=== PATIENT | male | born 1965 | race Caucasian/White ===

== ENCOUNTER 2024-03-22 08:40 | Inpatient (IN) | payer BC, SELFPAY ==
[2024-03-18 09:11] VITALS: BMI 28.5
[2024-03-18 09:58] LABS: % Basophils 0.8 % (0-2); % Eosinophils 2.9 % (0-6); % Immature Granulocytes 0.3 % (0-0.5); % Lymphocytes 33.2 % (20.5-51.1); % Neutrophils 54.8 % (42.2-75.2); Absolute Basophils 0.1 10^3/uL (0-0.2); Absolute Eosinophils 0.3 10^3/uL (0-0.7); Absolute Lymphocytes 2.9 10^3/uL (1.2-3.4); Absolute Monocytes 0.7 10^3/uL (0.1-0.6); Absolute Neutrophils 4.8 10^3/uL (1.4-6.5); Hematocrit 39.4 % (39.0-52.0); Mean Corp Hgb Conc. 35.5 g/dL (33.0-37.0); Mean Corpuscular Hgb 33.2 pg (27.0-31.0); Mean Corpuscular Volume 93.4 fL (80.0-94.0); Mean Platelet Volume 8.8 fL (7.4-10.4); Nucleated Red Blood Cells % 0 % (-); Platelet Count 325 10^3/uL (130-400); Red Blood Cell Count 4.22 10^6/uL (4.70-6.10); Red Cell Dist. Width 11.3 % (11.5-14.5); White Blood Cell Count 8.8 10^3/uL (4.8-10.8)
[2024-03-18 10:01] LABS: Urine Albumin Negative (Neg - Trace); Urine Bilirubin Negative (Negative); Urine Character Clear (Clear); Urine Color Yellow; Urine Glucose Negative (Negative); Urine Ketone Negative (Negative); Urine Leukocyte Negative (Negative); Urine Nitrite Negative (Negative); Urine Occult Blood Negative (Negative); Urine Urobilinogen Negative (Neg - 1+)
[2024-03-18 10:05] LABS: INR 0.94; PT 12.3 Sec (11.4-14.6)
[2024-03-18 10:06] LABS: APTT 29.1 Sec (23.4-35.0)
[2024-03-18 10:58] LABS: ALT (SGPT) 20 U/L (0-50); AST (SGOT) 22 U/L (17-59); Albumin 4.6 g/dl (3.5-5.0); Alkaline Phosphatase 72 U/L (38-126); Blood Urea Nitrogen 21 mg/dl (9-20); Calcium 9.9 mg/dl (8.4-10.2); Carbon Dioxide 23 mmol/L (22-30); Chloride 101 mmol/L (98-107); Direct Bilirubin 0.3 mg/dl (0.0-0.4); Estimated Creatinine Clearance 99 ml/min; Glucose 133 mg/dl (70-99); Potassium 4.7 mmol/L (3.5-5.1); Sodium 133 mmol/L (135-145); Total Bilirubin 0.6 mg/dl (0.2-1.3); Total Protein 6.9 g/dl (6.3-8.2); eGFR > 60.00
--- NOTE | 2024-03-18 10:58 | CM ---
CM met w/ patient, spouse during PATs for planned CABG 03/22.
Patient resides in a 3 story home w/ spouse. There are 8-9 LORI.
Functionally, patient is indep. w/ ADLs, mobility without the use of any assisted device. Pt. has SPC and RW in the home but does not use (spouse's from knee surgery). 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
Pt. has Rx plan and uses [facility] [place] for [facility] needs.
Reviewed pre and post op routines.
Soap, shower instructions and Cardiac Surgery booklet provided.
Discussed post op restrictions to include lifting, driving, flying and sternal precautions.
Reviewed post op appointments, Cardiac Rehab and visit from CT Transitional Care RN. Pt. agreeable to CT RN visit.
Plan for CT Surgery 03/22.
Anticipated DC plan is for home w/ CT Transitonal Care RN.
CM to follow.
[2024-03-18 11:58] LABS: Glycohemoglobin (HgbA1c) 6.5 % (4.0-5.6)
[2024-03-22] VITALS (9 sets, daily range): BP systolic 108–160; BP diastolic 67–102; BMI 27.9
--- NOTE | 2024-03-22 09:01 | CM ---
Reviewed chart. Mr. Faith is in the operating room today. Prior to admission he resides with his spouse in a three story yanet with nine steps to enter. Prior to admission he was independent with ambulation and adls. There is a walker and single
point cane in the home that his spouse used when she has knee surgery. He has a prescription plan and uses [facility]. Medical work-up in progress. The discharge plan is to return home with his spouse and a home visit by the Cardiothoracic
Transitional Care Nurse when medically stable.
[2024-03-22] MEDS: BACTROBAN 2% OINTMENT 1 APPLIC NASAL ×2 (09:30→20:06)
[2024-03-22] MEDS: LOPRESSOR 25 MG PO (09:30)
[2024-03-22] MEDS: PROTONIX 40 MG PO (09:30)
[2024-03-22] MEDS: MAGNESIUM OXIDE 500 MG PO (09:31)
--- NOTE | 2024-03-22 09:49 | PTCARENOTE ---
Pt admitted to unit. Surgical Clip and prep preformed for CABG. Meds administered per order. BP obtained in bilateral arms and charted. Awaiting call for CVOR
--- NOTE | 2024-03-22 12:13 | W.CVOR.SURPR ---
CVOR Surgeon Immed Pre Op
-
I have examined this patient prior to performance of the scheduled procedure.
The patient's condition is unchanged from the time of the dictated/written History and
Physical and the patient is able to undergo the scheduled procedure.
CABG x 3 (multi arterial) +/- FLOR Clip
[2024-03-22 13:11] LABS: ACT+ - POC 96 Seconds (82-134)
[2024-03-22 13:12] LABS: Glucose - POC 119 mg/dl (65-99); HCO3 - POC 22 mmol/L (21-29); Hematocrit - POC 35 % PCV (42-52); Hemodilution- POC No; Hemoglobin Calculated - POC 11.9; Ionized Calcium - POC 1.18 mmol/L (1.12-1.27); O2 Saturation %Calculated-POC 98.8 5 (92-96); PCO2 - POC 45 mmHg (35-45); PO2 - POC 139 mmHg (80-100); Potassium - POC 3.9 mmol/L (3.6-5.0); Sodium - POC 142 mmol/L (135-145); pH - POC 7.29 (7.35-7.45)
[2024-03-22 13:41] LABS: Urine Bilirubin Negative (Negative); Urine Character Clear (Clear); Urine Color Yellow; Urine Glucose Negative (Negative); Urine Ketone Negative (Negative); Urine Leukocyte Negative (Negative); Urine Nitrite Negative (Negative); Urine Occult Blood Negative (Negative); Urine Urobilinogen Negative (Neg - 1+)
[2024-03-22 13:44] LABS: Urine Albumin Trace (Neg - Trace)
[2024-03-22 15:15] LABS: ACT+ - POC 573 Seconds (82-134)
[2024-03-22 15:55] LABS: B.E. - POC -3.3 mmol/L; Glucose - POC 198 mg/dl (65-99); HCO3 - POC 23 mmol/L (21-29); Hematocrit - POC 30 % PCV (42-52); Hemodilution- POC Yes; Hemoglobin Calculated - POC 10.3; Ionized Calcium - POC 0.93 mmol/L (1.12-1.27); O2 Saturation %Calculated-POC 99.9 5 (92-96); PCO2 - POC 45 mmHg (35-45); PO2 - POC 293 mmHg (80-100); Potassium - POC 6.7 mmol/L (3.6-5.0); Sodium - POC 133 mmol/L (135-145); pH - POC 7.32 (7.35-7.45)
[2024-03-22 16:01] LABS: ACT+ - POC 680 Seconds (82-134)
[2024-03-22 16:28] LABS: B.E. - POC -2.1 mmol/L; Glucose - POC 216 mg/dl (65-99); HCO3 - POC 24 mmol/L (21-29); Hematocrit - POC 35 % PCV (42-52); Hemodilution- POC Yes; Hemoglobin Calculated - POC 11.8; O2 Saturation %Calculated-POC 98.9 5 (92-96); PCO2 - POC 45 mmHg (35-45); PO2 - POC 135 mmHg (80-100); Potassium - POC 5.1 mmol/L (3.6-5.0); Sodium - POC 137 mmol/L (135-145); pH - POC 7.34 (7.35-7.45)
[2024-03-22 16:36] LABS: ACT+ - POC 751 Seconds (82-134)
[2024-03-22] MEDS: ANCEF 10 IV ×2 (16:51)
[2024-03-22 17:08] LABS: ACT+ - POC 96 Seconds (82-134)
[2024-03-22 17:12] LABS: B.E. - POC -2.6 mmol/L; Glucose - POC 156 mg/dl (65-99); HCO3 - POC 24 mmol/L (21-29); Hematocrit - POC 32 % PCV (42-52); Hemodilution- POC Yes; Ionized Calcium - POC 1.26 mmol/L (1.12-1.27); O2 Saturation %Calculated-POC 99.8 5 (92-96); PCO2 - POC 45 mmHg (35-45); PO2 - POC 236 mmHg (80-100); Potassium - POC 3.6 mmol/L (3.6-5.0); Sodium - POC 142 mmol/L (135-145); pH - POC 7.32 (7.35-7.45)
[2024-03-22] MEDS: NEURONTIN PO (17:27)
[2024-03-22] MEDS: NOVOLOG FLEXPEN SC (17:27)
[2024-03-22] MEDS: PACERONE PO (17:28)
[2024-03-22] MEDS: NSS 500 IV (17:28)
[2024-03-22] MEDS: TYLENOL PO ×2 (17:28→22:48)
--- NOTE | 2024-03-22 17:29 | CON.INTV ---
Consultation
Consultation Request
Date/Time Consultation Requested: 03/22/2024 - 1712
Date/Time Consultation Performed: 03/22/2024 - 1724
Requesting Provider: Wen ROWLEY
Performing Provider: Dr. Clement
Reason for Consultation: s/p CABG
Medical History
-
Chief Complaint: Elective CABG
History of Present Illness:
59-year-old male with a past medical history of CAD, hypertension, DM type II and hyperlipidemia presents for elective CABG. Patient known to cardiothoracic surgery here at with last office visit on 03/17/[address] Mitchell. Patient has
multivessel CAD and was recently admitted to [facility] due to chest discomfort on exertion. Left heart cath performed on 03/14/2024 showed multivessel CAD involving the proximal LAD. Patient is very active at baseline. Surgical
intervention for CABG was discussed and patient agreed to intervention. Today he underwent CABG x3 and was transferred to CVICU postoperatively. [employer] service is now consulted for additional management/recommendations.
When I saw the patient he was in bed, on ventilator via SIMV on settings 16/550/60%/5, breathing 16 breaths/min with PIP 23 cmH2O and VTe of 513mL. He was saturating 99%, heart rate 59, BP 140/65. He is currently on Cardizem drip at 5mg/hr and
Levophed at 8mcg/min. He has mediastinal chest tubes x 2 and a left/right pleural chest tube.
PMHx: DM type II, hyperlipidemia, hypertension, CAD
PSHx: Tonsillectomy, vasectomy
Past Medical History
Past Medical History: Other (above as per HPI)
Past Surgical History: Other (above as per HPI)
Social History
Tobacco: Former Smoker
Alcohol: Occasional
Drug: None
Family History
Family History: CAD (Mother), Diabetes (Mother) and Hypertension (Father)
Allergies / Home Medications
Allergies
Allergy/AdvReac Type Severity Reaction Status Date / Time
lanolin alcohols Allergy Intermediate Hives Verified 03/22/24 09:35
Home Medications
�Medication �Instructions �Recorded �Confirmed �Last Taken �Type
amlodipine 5 mg tablet 5 mg PO BID Blood Pressure 03/17/24 03/22/24 03/19/24 22:00 History
aspirin 81 mg tablet,delayed 81 mg PO DAILY Blood Clot 03/17/24 03/22/24 03/21/24 08:00 History
release Prevention/Tx
atorvastatin 40 mg tablet 40 mg PO DAILY High Cholesterol 03/17/24 03/22/24 03/21/24 20:00 History
enalapril maleate 5 mg tablet 15 mg PO BID Blood Pressure 03/17/24 03/22/24 03/19/24 22:00 History
ibuprofen 200 mg tablet 800 mg PO Q8H PRN pain 03/17/24 03/22/24 03/21/24 16:00 History
isosorbide mononitrate 30 mg 30 mg PO DAILY Blood Pressure 03/17/24 03/22/24 03/21/24 08:00 History
tablet,extended release 24 hr
metformin 500 mg tablet 500 mg PO BID Diabetes 03/17/24 03/22/24 03/21/24 20:00 History
metoprolol tartrate 25 mg tablet 25 mg PO DAILY Blood Pressure 03/17/24 03/22/24 03/21/24 08:00 History
multivitamin 1 tab PO DAILY Supplement 03/17/24 03/22/24 03/21/24 08:00 History
loratadine 10 mg tablet 10 mg PO DAILY Allergies 03/22/24 03/22/24 03/21/24 08:00 History
Review of Systems
-
Unable to Obtain full review of systems at this time due to: Patient Intubation
Vitals / Labs / Diagnostic Testing
Vital Signs
Temp Pulse Resp BP Pulse Ox
97.6 F 75 14 157/102 95
03/22/24 09:02 03/22/24 09:02 03/22/24 09:02 03/22/24 08:49 03/22/24 09:02
Microbiology
03/18/24 09:17 Nose MRSA Screen - Final
No Methicillin Resistant Staphylococcus aureus isolated.
Diagnostic Testing:
Physical Exam
-
HEENT: Normocephalic and Anicteric
Cardiovascular: S1/S2 and Peripheral Edema (negative)
Respiratory: Wheeze (n), Rales (n), Rhonchi (n), Non-Labored Respirations and Other (ETT in place; mechanical breath sounds heard bilaterally)
GI: Soft, Non Distended and Non Tender
Neurology: Tremors (n) and Other (Sedated)
Skin: Warm and Dry
General: Chills (Negative)
Assessment
-
Assessment: 59-year-old male with a past medical history of CAD, hypertension, DM type II and hyperlipidemia presents for elective CABG. Patient known to cardiothoracic surgery here at with last office visit on 03/17/[address] Mitchell. Patient
has multivessel CAD and was recently admitted to [facility] due to chest discomfort on exertion. Left heart cath performed on 03/14/2024 showed multivessel CAD involving the proximal LAD. Patient is very active at baseline. Surgical
intervention for CABG was discussed and patient agreed to intervention. Today he underwent CABG x3 with no immediate complications, and was transferred to CVICU postoperatively. [employer] service is now consulted for additional
management/recommendations.
Impression:
#Multivessel CAD involving proximal LAD s/p CABG x3 (POD#0)
#Former tobacco use disorder
#Anemia
#DM type II
Plan:
Ventilator settings reviewed
FiO2 will be weaned to maintain SpO2 >90-94%
Minute ventilation will be adjusted
Arterial blood gases will be monitored
Spontaneous breathing trial will be attempted with hopeful extubation after anesthesia/sedation wear off
Pulmonary artery catheter parameters will be followed
Pressors/antihypertensive/inotropes/diuretics will be provided as needed
Maintain MAP>65
Monitor chest tube output (mediastinal X2 and left & right pleural chest tubes)
Monitor hemoglobin
Monitor platelet count and coags
Transfuse blood product if needed
CT surgery managing chest tubes
Monitor blood sugar with goal BG 140-180mg/dL
Insulin drip per protocol
Replete electrolytes with K>4, Mg>2
Aspiration precautions
VAP prevention protocol
DVT prophylaxis
Early nutrition
Early mobilization
Critical care statement: A total of 42 minutes of critical care time was provided for this patient today. This includes management of ventilator, spontaneous breathing trial, arterial blood gases, pressors, of unstable vital signs, evaluation of the
patient at bedside, reviewing the patient's pertinent medical records including radiographs, microbiology, laboratory evaluations, and discussion with primary team and critical care nursing.
Data:
CXR 03-22-2024: Postoperative chest.
--- NOTE | 2024-03-22 17:48 | W.PN.CT.SURG ---
CT Surgery Operative Note
-
CARDIAC SURGERY OPERATIVE REPORT
Preoperative Diagnosis: Multivessel Coronary Artery Disease with proximal LAD disease and a chronically totally occluded RPDA
Postoperative Diagnosis: Same
Procedure(s) Performed:
1. Standard sternotomy with aortic and right atrial cannulation
2. Total arterial coronary artery bypass grafting x 3 (In situ MAYEN to LAD, DARCIE y'd off the MAYEN to OM 1, Ao to radial to RPDA)
3. Endoscopic left radial artery harvesting
4. Transesophageal echocardiography
5. Placement of temporary ventricular pacing wires
Date of Surgery: 03/22/2024
Comorbidities:
1. Multivessel coronary artery disease involving the proximal LAD
2. Diabetes on oral medications
3. Hyperlipidemia
4. Hypertension
Attending Surgeon: Benton Mitchell MD, MS
Assistants: Dylan Stacy PA-C (present and necessary to nurseryman assistant, endoscopic vein harvest, retraction, suction, exposure, suture management, and wound closure under my direction) & Helen Chauhan PA-C (endo radial harvesting under the direction
of Dylan Stacy PA-C)
Anesthesiology: Edmund Neil MD and Katie Borrego CRNA
Scrub and Circulating RNs: Sukhwinder Ball, RN, Nilda Callahan, MIRELLA
Plant Attendant: Tommy Lee CCP
Anesthesia: GETA
EBL: per perfusion records
Products: None
CPB Time: 80 minutes
Aortic Cross Clamp Time: 50 minutes
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 He
has significant family history for coronary artery disease. He is very active at baseline has ECOG score of 0. Due to his disease pattern and young age, he was offered multi arterial revascularization. He may class I indication for surgery. He
accepted those risk and so we proceeded.
Conduit(s) Quality:
MAYEN -excellent/skeletonized, good flow
DARCIE�excellent/large size vessel, skeletonized and taken as a free graft and y'd off of the MAYEN
Left radial artery-good/small area of superficial dissection however no impedance of flow
Target(s) Quality:
RPDA -good, small to medium size/excellent flow with test dose of antegrade approximately 50 cc a minute of flow at a pressure of 80 mmHg
OM 1-good/good visual flow in the OM territory with pinking up of the lateral wall upon release of the bulldog allowing flow to the DARCIE
LAD -excellent/good visual flow in the distal LAD and pinking up of the myocardium along the LAD territory
Findings: Left ventricular ejection fraction preoperatively was 65% without regional wall motion abnormalities. The MAYEN and DARCIE were harvested in a skeletonized fashion with the DARCIE taken as a free graft and y'd off of the midportion of the MAYEN.
Following bypass grafting, test dose cardioplegia was given down the radial artery using an 18-gauge Angiocath and confirmed patency and hemostasis. There is excellent visual flow in the LAD and lateral territories upon release of the bulldog clamp
sequentially. Following surgery his EF remained the same at 65% without any regional wall motion abnormalities. No products were given. No inotropic support was necessary. He did have intermittent right bundle branch block that resolved to a
regular sinus rhythm by the conclusion of the case.
Description of Procedure: The patient was taken to the operating room. Their identity and procedure to be performed were verified and they were positioned supine on the operating table. Induction via general anesthesia with endotracheal intubation
was performed and central venous access and arterial monitoring were inserted. A preoperative transesophageal echocardiogram was performed to assess cardiac function and valvular function. The patient was then prepped and draped from chin to feet in
a sterile fashion. A preoperative time-out was performed with all members of the team present. A midline chest incision was performed along with median sternotomy. Simultaneous endoscopic access of the left radial artery was obtained along with
administration of an initial 5,000 units of IV heparin. A RulTract sternal retractor was positioned to exposure the left internal mammary bed. The mammary was harvested and found to have good flow. A medium clip was applied to the distal end of the
mammary after dividing it. It was wrapped in a papaverine soaked RayTec and replaced back into the left hemithorax. The Rultract was then repositioned to expose the right hemithorax. There DARCIE is harvested in a skeletonized fashion. Was taken as
a free graft with 2 medium clips on each end. There is an excellent sized vessel. The RulTract was exchanged for a median sternal retractor. The innominate vein was isolated. Full heparinization was given (a total of 55,000 units). We created a
pericardial well. The aortic cannulation site was chosen where it was soft, pliable, and free of calcium. Cannulation was performed with an arterial cannula in the ascending aorta and a triple-stage venous cannula through the right atrial appendage.
The arterial cannula line had an appropriate bounce and correlating pressures with test dosing. Next, a root vent/antegrade cannula was inserted into the ascending aorta. The ACT was confirmed to be over 400 and retrograde autologous priming was
performed before commencing cardiopulmonary bypass. The pulmonary artery was away from the aorta to facilitate a clamp site. A DARCIE MAYEN Y graft construction was performed using 8-0 Prolene in end-to-side fashion at the midportion of the
MAYEN graft. There was excellent flow with test release of both the DARCIE and MAYEN independently. The aortic cross-clamp was placed after decreasing the flow on the bypass and mean arterial pressure. A total of 1.2L initial dose of antegrade
Del-Nido cardioplegia solution was given and planned for re-dosing every 75 minutes as necessary. There was rapid electro-mechanical arrest of the heart at 200 cc of cardioplegia. The left ventricle was observed for distention on echocardiogram and
manual palpation. Cold slush was placed into a sponge and topically on the RV while we systemically cooled to 34 degrees centigrade.
I positioned the heart to expose the distal right coronary at the posterior descending artery. A miccosukee blade was used to expose the coronary and perform the arteriotomy. Coronary Morales scissors were used to enlarge the incision. The left radial
artery was trimmed and beveled to an appropriate size. The distal anastomosis was performed using 7-0 prolene in an end-to-side fashion. Antegrade cardioplegia was administered into the graft. Appropriate hemostasis and flow were confirmed. The
graft was measured for length to the aorta and cut. A suitable site on the first obtuse marginal was chosen. We dissected and prepared the distal target in a similar fashion. An end-to-side anastomosis was created with a 7-0 prolene with the DARCIE
graft. A release of the bulldog demonstrated excellent flow in the territory and good hemostasis. A suitable target on the mid/distal left anterior descending was identified. We dissected and prepared the distal target in a similar fashion. The
distal end of the left internal mammary was prepped and beveled to size. We verified orientation and length of the FABBY and found brisk flow. An end-to-side anastomosis was created with a 7-0 prolene. We temporarily released the bulldog clamp on the
mammary to inspect flow. Perfusion to the LAD territory was visualized and hemostasis was confirmed. The bull clamp was replaced on the mammary. The heart was filled and the root was distended with antegrade cardioplegia to make final assessment of
graft length and orientation. We created 1 aortotomy using a #11 blade then a 4.0mm aortic punch. The proximal anastomoses were created in an end-to-side fashion using 7-0 prolene. At the the same time, we re-warmed to 36.5 degrees centigrade. The
bulldog clamp was removed from the mammary. Temporary bipolar ventricular pacing wires were placed on the base of the right ventricle. The patient was placed in a Trendelenburg position and flows on bypass were lowered. The aortic cross clamp was
removed and flows were slowly brought back up. All bypass grafts were inspected and were free from kinking or twisting. The distal and proximal anastomoses appeared hemostatic after placing a single 7 oh repair stitch in the proximal radial
anastomosis. Once transesophageal echocardiography appeared satisfactory for de-airing, the flows were temporarily lowered for root vent removal. After verifying acceptable parameters, we initiated weaning from cardiopulmonary bypass. Once we were
off cardiopulmonary bypass, the venous cannula was clamped and removed. A test dose of protamine was administered and the patient was monitored for any adverse reaction before resuming protamine. Once half of the protamine dose was delivered, pump
suckers were turned off and the systolic blood pressure was lowered for aortic decannulation. The aortic cannula was removed and pursestrings were tied down. All cannulation sites were oversewn with a 4-0 prolene. The mammary beds were inspected and
hemostasis was confirmed. Once the mediastinum was hemostatic, 19Fr Herbie drain was placed in the left and right pleural cavity and two 24Fr Herbie drains were placed within the pericardium. The sternum was approximated with 4 #7 single and 3 #8
double stainless steel wires. Fascia was approximated with #1 vicryl suture. The subcutaneous, dermis and epidermis were closed in layers in a running fashion. The skin wound was cleansed and dressed.
All instrument, sponge, and needle counts were confirmed to be correct x 2 at the end of the operation. The patient was transferred to the cardiac intensive care unit in critical but stable condition.
I, Dr. Benton Mitchell, was present, scrubbed for, and performed all critical elements of this procedure.
Benton Mitchell MD, MS
Cardiothoracic Surgeon
[facility]
This operative dictation was created using the Geotender dictation system. Please excuse any grammatical, typographical, or 'sound alike' errors
[2024-03-22 18:05] LABS: B.E. -1.5 mmol/L; HCO3 23.7 mmol/L (21-28); Ionized Calcium 1.19 mMOL/L (1.15-1.33); O2 Saturation % 99.3 % (94-98); PCO2 41 mmHg (35-48); PO2 177 mmHg (83-108); Potassium 3.5 mMOL/L (3.5-5.1); Sodium 138 mMOL/L (136-145); pH 7.37 (7.35-7.45)
[2024-03-22 18:06] LABS: Hematocrit 32.1 % (39.0-52.0); Hemoglobin 12.1 g/dL (13.0-18.0); Platelet Count 279 10^3/uL (130-400)
[2024-03-22 18:09] LABS: Glucose - Point of Care 134 mg/dl (70-99)
[2024-03-22 18:14] LABS: INR 1.32; PT 16.2 Sec (11.4-14.6)
--- NOTE | 2024-03-22 18:15 | PTCARENOTE ---
Pt out of CVOR to CVICU at 1750. Pt is intubated and sedated on Precedex gtt. Pt SR with HR 60. BP 114/65 MAP 82. CVP 9. Epicardial V wire in place. Intubated with #8 ET tube at 24cm on right lip. SIMV 40% FiO2, rate 16, TV 550, pressure support 5,
PEEP 5. Pulse oximetry 99%. CT x4 in place no sign of air leak or crepitus, drainage red in color. Hypoactive bowel sounds. Marino in place draining yellow urine. Midsternal incision well approximated, surgical adhesive intact. Left arm incision with
erik wrap in place. Chest tube site intact. Right IJ cordis in place with slick. CVP transduced through cordis line. Right radial Viri in place. Remains on Levo 2mcg/min, Cardizem 5 mg/hr, and Insulin. Post op EKG, x-ray, and labs collected.
[2024-03-22 18:16] LABS: Blood Urea Nitrogen 18 mg/dl (9-20); Estimated Creatinine Clearance 98 ml/min; Glucose 126 mg/dl (70-99); Magnesium 2.5 mg/dl (1.6-2.3)
--- NOTE | 2024-03-22 18:23 | W.PN.UPDATE ---
Update Note
Progress Note Update
59-year-old male electively admitted 03/22/2024 for CABG due to triple-vessel coronary artery disease
IV fluids: 3150
U.O.:� 800
UF:� 1500
Blood:� none
Wires:� bipolar V-wire
Inotropes:� none
Pressors:� levophed @ 10
Sedatives:� Precedex @ 0.5
�
NEURO: sedated on Precedex, pupils +2mm B/L
RESP: #8OT @24cm> 650/60%/14/5. Lungs clear B/L. 2 mediastinal (0cc on arrival) and R/L pleural (5cc on arrival) chest tubes to -20cm suction. Sanguineous drainage
CV: RRR +S1, S2, no S3, no�rub, no murmur. Dermabond to median sternotomy. RIJ w/slick intact
ABD: round, soft, no BS
EXT: no edema, +2/4 DP pulses B/L, no femoral bruit, right radial A-line intact, LUE SUMA wrap intact
: Mraino with clear yellow urine
�
A/P: POD #0 s/p CABG x 3 MAYEN-LAD, DARCIE-OM1 (y'd off the MAYEN), radial-RPDA
TRISTON: EF�65-70%, trace MR/TR
- wean and extubate
# CAD
-mukund require ASA/Plavix, statin, beta kandi
- Norvasc tonight when extubated, then can DC Diltiazem infusion
�
# acute surgical blood loss anemia-expected
- trend CBC
�
# T2DM (A1C 6.5)
- insulin infusion x 48h
- carb controlled diet
- resume Metformin 500mg BID once off insulin infusion
- resume ACEI as BP permits
�
[2024-03-22] MEDS: KCL 50 IV ×2 (18:29→19:48)
[2024-03-22] MEDS: DILAUDID 0.25 MG IV (19:03)
[2024-03-22 19:12] LABS: Glucose - Point of Care 115 mg/dl (70-99)
--- NOTE | 2024-03-22 20:00 | PTCARENOTE ---
Assumed care of pt from dayshift RN. Walking rounds completed. Pt intubated and sedated. Precedex infusing per protocol. Pt drowsy but following commands appropriately and PALENCIA. SR on monitor. HR 60s. Temporary epicardial v-wire intact and box turned
off. +rub. BP 90-100s/50-60. Levo infusing per protocol. CVP 8-14. Pt ETT #8, 24 cm @ right lip. See worklist for full vent settings. POX 100%. Lung sounds diminished anteriorly. Mediastinal CTx2 to -20 suction, no air-leak/tidaling/crepitus noted
at this time. Left/Right pleural CT to -20 suction, no airleak/tidaling/crepitus noted at this time. Abdomen soft/nontender. Temp sensing Marino catheter CDI and draining clear/yellow urine. Hypoactive BS. Sternal incision approximated w/ surgical
adhesive. Left radial graft site wrapped in SUMA and CDI. Cardizem, infusing as ordered. Right IJ cordis w/ SLIC CDI. Right radial a-line CDI. All lines leveled, zeroed, and flushed. Glycemic protocol followed. See worklist for full nursing
assessment, VS, and interventions.
[2024-03-22] MEDS: SENOKOT-S PO (20:06)
--- NOTE | 2024-03-22 20:10 | PTCARENOTE ---
Pt placed to CPAP by RT. Pt tolerating at. VSS. POX 100%.
[2024-03-22 20:44] LABS: Glucose - Point of Care 92 mg/dl (70-99)
[2024-03-22 20:56] LABS: B.E. -3.9 mmol/L; HCO3 21.6 mmol/L (21-28); O2 Saturation % 98.7 % (94-98); PCO2 40 mmHg (35-48); PO2 127 mmHg (83-108); pH 7.34 (7.35-7.45)
[2024-03-22 21:10] LABS: Glucose - Point of Care 105 mg/dl (70-99)
[2024-03-22] MEDS: OFIRMEV 100 IV (21:24)
--- NOTE | 2024-03-22 21:30 | PTCARENOTE ---
ABG drawn and sent. CTPA put in order to extubate. Pt extubated by RT @2111 to 6 L NC. POX 100%. Pt AAOx3, VSS.
[2024-03-22 22:40] LABS: Hematocrit 34.7 % (39.0-52.0); Platelet Count 308 10^3/uL (130-400)
[2024-03-22] MEDS: NEURONTIN 100 MG PO (22:47)
[2024-03-22] MEDS: PACERONE 200 MG PO (22:47)
[2024-03-22] MEDS: NORVASC 5 MG PO (22:47)
[2024-03-22] MEDS: LOW STRENGTH ASPIRIN 81 MG PO (22:47)
[2024-03-22] MEDS: ALBUMIN 5% 250 IV (22:49)
--- NOTE | 2024-03-22 22:55 | PTCARENOTE ---
Per CTPA - give pt Norvasc PO then stop Cardizem infusion.
[2024-03-22 23:00] LABS: Glucose - Point of Care 169 mg/dl (70-99)
[2024-03-23] VITALS (28 sets, daily range): BP systolic 115–156; BP diastolic 71–95; PULSE 78; O2SAT 98; BMI 28.2
[2024-03-23] MEDS: ANCEF 5 IV ×3 (00:06→16:02)
[2024-03-23] MEDS: ROXICODONE 5 MG PO ×2 (00:06→20:27)
[2024-03-23] MEDS: ALBUMIN 5% 250 IV (00:19)
[2024-03-23] MEDS: DILAUDID 0.5 MG IV ×2 (00:31→04:51)
--- NOTE | 2024-03-23 00:52 | PTCARENOTE ---
Pt reassessed. SR on monitor. HR 70s. BP stable. Levo titrated off per protocol. 4 L NC. POX 100%. CT assessment unchanged from previous. All surgical sites stable. Glycemic protocol followed. All lines zeroed, leveled and flushed. Pt c/o pain - see
MAR. 250 albumin x2 per CTPA. Call gardiner within reach.
[2024-03-23 01:20] LABS: Glucose - Point of Care 139 mg/dl (70-99)
[2024-03-23] MEDS: FLEXERIL 5 MG PO ×2 (02:38→13:48)
[2024-03-23 03:17] LABS: Glucose - Point of Care 123 mg/dl (70-99)
[2024-03-23 03:24] LABS: Hematocrit 30.5 % (39.0-52.0); Hemoglobin 11.5 g/dL (13.0-18.0); Mean Corp Hgb Conc. 37.7 g/dL (33.0-37.0); Mean Corpuscular Hgb 33.8 pg (27.0-31.0); Mean Corpuscular Volume 89.7 fL (80.0-94.0); Mean Platelet Volume 8.5 fL (7.4-10.4); Platelet Count 245 10^3/uL (130-400); Red Cell Dist. Width 11.7 % (11.5-14.5); White Blood Cell Count 12.3 10^3/uL (4.8-10.8)
--- NOTE | 2024-03-23 03:48 | PTCARENOTE ---
Addendum entered by Chrissy Wu RN 03/23/24 03:52:
Labs drawn and sent. EKG obtained.
Original Note:
Previous assessment unchanged. Pt SR on monitor. HR 70s. BP stable. CVP 6-10. 4 L NC. POX 98-100%. CT assessment unchanged. All surgical sites stable. Marino catheter CDI. Glycemic protocol followed. All lines leveled, zeroed, and flushed. Pt c/o
pain - see MAR. Call gardiner within reach.
[2024-03-23 03:51] LABS: Blood Urea Nitrogen 19 mg/dl (9-20); Calcium 9.1 mg/dl (8.4-10.2); Carbon Dioxide 22 mmol/L (22-30); Chloride 106 mmol/L (98-107); Estimated Creatinine Clearance 110 ml/min; Glucose 116 mg/dl (70-99); Magnesium 2.1 mg/dl (1.6-2.3); Potassium 4.5 mmol/L (3.5-5.1); Sodium 138 mmol/L (135-145); eGFR > 60.00
[2024-03-23 04:56] LABS: Glucose - Point of Care 120 mg/dl (70-99)
--- NOTE | 2024-03-23 06:13 | W.PN.CT ---
Today's Communication / Plan
-
POD #1
- hemodynamically stable. levo off
- tele phase
- diltiazem off s/p norvasc given postop
- UOP 960/1060 in 12/24hrs
- CT med 60/65 in 12/24 hrs, pleural 120/135 in 12/24hrs
- 4LNC, wean as tolerates
- encourage IS/chest PT
- PT/OT, OOB
- dispo planning
Assessment / Plan
-
s/p coronary artery bypass grafting x 3 (In situ MAYEN to LAD, DARCIE y'd off the MAYEN to OM 1, Ao to radial to RPDA) on 03/22/[address] Mitchell - POD #1
-CAD now s/p cabg 03/22/24
-HTN
-HLD
-NIDDM
-psh s/p tonsillectomy
Discussed patient care with: Care Team
Subjective
Procedure
s/p coronary artery bypass grafting x 3 (In situ MAYEN to LAD, DARCIE y'd off the MAYEN to OM 1, Ao to radial to RPDA) on 03/22/[address] Mitchell
-
Date of Service: March 23, 2024
Objective Data
-
Lab Results
03/23/24 03:16
03/23/24 03:16
PT 16.2 Sec (11.4-14.6) H 03/22/24 17:58
INR 1.32 03/22/24 17:58
APTT 26.0 Sec (23.4-35.0) 03/22/24 17:58
Vital Signs
Vital Signs
Temp Pulse Resp BP Pulse Ox
100 F 76 19 136/77 98
03/23/24 04:00 03/23/24 04:15 03/23/24 04:15 03/23/24 04:00 03/23/24 04:15
CT Intake/Output/Weight
03/22/24 03/22/24 03/23/24
06:59 18:59 06:59
Intake Total 62.1 / 892.0 829.9 / 892.0
Output Total 120 / 1090 970 / 1090
Balance -57.9 / -198.0 -140.1 / -198.0
SaO2: 98
Physical Exam
-
General: Awake, Oriented and AOx3
Cardiovascular: Regular rate & rhythm
Respiratory: Clear and Equal
Sternum: Stable
Incision: Clean, Dry and Intact
Extremities: Edema +1
Data Reviewed
-
Lab Results: Results Reviewed
Medications: Active Meds Reviewed
Chest X-Ray: Image Reviewed
Vital Signs / Labs
-
Vital Signs and Labs:
Temp Pulse Resp BP Pulse Ox
99.9 F 83 24 132/84 99
03/23/24 05:00 03/23/24 05:15 03/23/24 05:15 03/23/24 05:00 03/23/24 05:15
03/23/24 03:16
03/23/24 03:16
03/21/24 03/22/24 03/22/24
08:18 13:09 15:05
WBC
RBC
Hgb
Hct
MCH
MCHC
PT
pH
pO2
ABG O2 Sat (Measured)
POC ABG O2 Sat (Calc) 98.8 H
Glucose
Magnesium
POC pH 7.29 L
POC pO2 139 H
POC Glucose 119 H
POC Sodium
POC Potassium
POC Ionized Calcium
POC ACT+ 573 H
POC Hematocrit 35 L
Crossmatch IS Only See Detail
03/22/24 03/22/24 03/22/24
15:45 15:50 16:18
WBC
RBC
Hgb
Hct
MCH
MCHC
PT
pH
pO2
ABG O2 Sat (Measured)
POC ABG O2 Sat (Calc) 99.9 H
Glucose
Magnesium
POC pH 7.32 L
POC pO2 293 H
POC Glucose 198 H
POC Sodium 133 L
POC Potassium 6.7 H*
POC Ionized Calcium 0.93 L
POC ACT+ 680 H 751 H
POC Hematocrit 30 L
Crossmatch IS Only
03/22/24 03/22/24 03/22/24
16:23 17:07 17:58
WBC
RBC
Hgb 12.1 L
Hct 32.1 L
MCH
MCHC
PT 16.2 H
pH
pO2 177 H
ABG O2 Sat (Measured) 99.3 H
POC ABG O2 Sat (Calc) 98.9 H 99.8 H
Glucose 126 H
Magnesium 2.5 H
POC pH 7.34 L 7.32 L
POC pO2 135 H 236 H
POC Glucose 216 H 156 H 134 H
POC Sodium
POC Potassium 5.1 H
POC Ionized Calcium 1.00 L
POC ACT+
POC Hematocrit 35 L 32 L
Crossmatch IS Only
03/22/24 03/22/24 03/22/24
19:10 20:52 21:09
WBC
RBC
Hgb
Hct
MCH
MCHC
PT
pH 7.34 L
pO2 127 H
ABG O2 Sat (Measured) 98.7 H
POC ABG O2 Sat (Calc)
Glucose
Magnesium
POC pH
POC pO2
POC Glucose 115 H 105 H
POC Sodium
POC Potassium
POC Ionized Calcium
POC ACT+
POC Hematocrit
Crossmatch IS Only
03/22/24 03/22/24 03/23/24
22:36 22:59 01:18
WBC
RBC
Hgb
Hct 34.7 L
MCH
MCHC
PT
pH
pO2
ABG O2 Sat (Measured)
POC ABG O2 Sat (Calc)
Glucose
Magnesium
POC pH
POC pO2
POC Glucose 169 H 139 H
POC Sodium
POC Potassium
POC Ionized Calcium
POC ACT+
POC Hematocrit
Crossmatch IS Only
03/23/24 03/23/24 03/23/24
03:15 03:16 04:54
WBC 12.3 H
RBC 3.40 L
Hgb 11.5 L
Hct 30.5 L
MCH 33.8 H
MCHC 37.7 H
PT
pH
pO2
ABG O2 Sat (Measured)
POC ABG O2 Sat (Calc)
Glucose 116 H
Magnesium
POC pH
POC pO2
POC Glucose 123 H 120 H
POC Sodium
POC Potassium
POC Ionized Calcium
POC ACT+
POC Hematocrit
Crossmatch IS Only
[2024-03-23] MEDS: TYLENOL 1000 MG PO ×3 (06:47→20:26)
[2024-03-23 07:00] LABS: Glucose - Point of Care 153 mg/dl (70-99)
--- NOTE | 2024-03-23 07:30 | W.PN.ANS.POP ---
Anesthesia Post Operative
- Anesthesia Post Op Note
Vital Signs Stable-See Nursing Note: Yes
Airway Patent: Yes
Adequate Pain Control: Yes
Change in Mental Status: No
Current Postoperative Nausea & Vomiting: No
Anesthesia Complications: No
General Anesthetic Recall: No
Unplanned Admission: No
Post Op Hydration Adequate: Yes
--- NOTE | 2024-03-23 07:55 | PTCARENOTE ---
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 RIJ Cordis w/kvo infusing. Insulin infusing per glycemic protocol. Epicardial V-wire to pulse generator, off. Chest tubes x 4 (Med x 2/L and R
pleural) to two pleurevacs, to -20cm suction w/no air leaks noted. All procedural sites stable. Patient updated to plan of care for the day, in agreement. See work list for full assessment and interventions performed.
[2024-03-23 08:27] LABS: Glucose - Point of Care 103 mg/dl (70-99)
[2024-03-23] MEDS: LASIX 40 MG IV (08:27)
[2024-03-23] MEDS: BACTROBAN 2% OINTMENT 1 APPLIC NASAL ×2 (08:27→20:37)
[2024-03-23] MEDS: LIDOCAINE 4% PATCH 1 PATCH TOPICAL (08:27)
[2024-03-23] MEDS: LOW STRENGTH ASPIRIN 81 MG PO (08:28)
[2024-03-23] MEDS: LOPRESSOR 12.5 MG PO (08:28)
[2024-03-23] MEDS: PROTONIX 40 MG PO (08:28)
[2024-03-23] MEDS: NEURONTIN 100 MG PO ×3 (08:28→20:26)
[2024-03-23] MEDS: PACERONE 200 MG PO ×3 (08:28→20:26)
[2024-03-23] MEDS: MAGNESIUM OXIDE 500 MG PO ×2 (08:28→20:26)
[2024-03-23] MEDS: PLAVIX 75 MG PO (08:29)
[2024-03-23] MEDS: LIPITOR 40 MG PO (08:29)
[2024-03-23] MEDS: SENOKOT-S 1 TABLET PO ×2 (08:29→20:27)
--- NOTE | 2024-03-23 08:35 | W.PN.CD ---
Today's Communication / Plan
-
cont ASA, plavix
trend tele
EKG in AM
Impression / Plan
-
59 yo male with CAD, HTN, hyperlipidemia, DM admitted following elective CABG.
# CAD s/p coronary artery bypass grafting x 3 (In situ MAYEN to LAD, DARCIE y'd off the MAYEN to OM 1, Ao to radial to RPDA) on 03/22/[address] Mitchell
-post op TRISTON: EF 65-70%
-cont ASA, Plavix, metoprolol, statin
# Abnormal EKG
-new LBBB pots op
-also diffuse ST elevation c/w pericarditis
-if sxs persist after chest tube removal, can add colchicine
-EKG in AM
# HTN
-trend BP as recovers from OR
-cont metoprolol, amlodipine
-add back home enalapril as BP allows
Physical Exam
Vital Signs/Labs
Vital Signs
Temp Pulse Resp BP Pulse Ox
99.9 F 90 20 137/78 97
03/23/24 05:00 03/23/24 08:28 03/23/24 07:00 03/23/24 08:28 03/23/24 08:15
03/22/24 03/23/24 03/24/24
06:59 06:59 06:59
Actual Weight 94.2 kg
03/23/24 03:16
03/23/24 03:16
PT 16.2 Sec (11.4-14.6) H 03/22/24 17:58
INR 1.32 03/22/24 17:58
APTT 26.0 Sec (23.4-35.0) 03/22/24 17:58
Magnesium 2.1 mg/dl (1.6-2.3) 03/23/24 03:16
Physical Exam
Constitutional: No acute distress
EENT: Moist mucous membranes
Cardiovascular: Rhythm & rate is regular, Pedal edema is absent, JVD pressure is normal, Systolic murmur absent and Rub present
Respiratory: Respiratory effort normal and Lungs clear to auscul.
GI: Soft, Distention absent and Flat
Neuro/Psych: AO x 3
Data Reviewed
-
Date of Service: March 23, 2024
EKG: Tracing Personally Visualized and interpreted (Tele: SR 70s)
Labs: Labs Reviewed by me
[2024-03-23] MEDS: NOVOLOG FLEXPEN SC (08:43)
[2024-03-23] MEDS: NORVASC 5 MG PO (09:17)
[2024-03-23] MEDS: NOVOLIN R INSULIN INFUSION 100 IV (09:18)
[2024-03-23] MEDS: TORADOL 15 MG IV ×3 (09:18→20:27)
--- NOTE | 2024-03-23 09:50 | W.PN.INTV ---
Today's Communication / Plan
Recommendations
Up OOB as tolerated
Maintain SpO2 >90-94%
Management of remaining mediastinal chest tubes as per CT surgery
Wean off of insulin drip as tolerated and maintain goal BG 140�180
Patient remains CVICU status as patient remains on insulin infusion. Appraisal Coordinator/Pulmonary service will continue to follow along while patient remains on insulin drip.
Assessment
-
Assessment: 59-year-old male with a past medical history of CAD, hypertension, DM type II and hyperlipidemia presents for elective CABG. Patient known to cardiothoracic surgery here at with last office visit on 03/17/[address] Mitchell. Patient
has multivessel CAD and was recently admitted to [facility] due to chest discomfort on exertion. Left heart cath performed on 03/14/2024 showed multivessel CAD involving the proximal LAD. Patient is very active at baseline. Surgical
intervention for CABG was discussed and patient agreed to intervention. Today he underwent CABG x3 with no immediate complications, and was transferred to CVICU postoperatively. Appraisal Coordinator service is now consulted for additional
management/recommendations.
Impression:
#Multivessel CAD involving proximal LAD s/p CABG x3 (POD#1)
#Former tobacco use disorder
#Anemia
#DM type II
Plan:
Tolerated extubation
Maintain SpO2 >90-94%
Encourage incentive spirometry
Increase activity
Aspiration precautions
Pulmonary artery catheter and arterial line removed
Removal of right IJ cordis as per CT surgery
Pressors have been weaned
Continue to monitor chest tube output (mediastinal chest tubes x2)
Follow hemoglobin
Continue to follow platelet count and coags
Transfuse blood product as needed to keep Hb>8 g/dL
CT surgery managing chest tubes as well
Follow blood sugar while on insulin gtt
q1hr POCT glucose
Goal BG 140-180mg/dL
Early nutrition
Early mobilization
DVT prophylaxis
Patient remains CVICU status as patient remains on insulin infusion. Appraisal Coordinator service will continue to follow along while patient remains on insulin drip. Continue q1hr POCT glucose checks and avoid hypoglycemia.
I personally reviewed the patient's pertinent medical records including radiographs, microbiology, laboratory evaluations, and discussion with primary team, and critical care nursing.
Critical care statement: A total of 37 minutes of critical care time was provided for this patient today. This includes management of ventilator, spontaneous breathing trial, arterial blood gases, pressors, of unstable vital signs, evaluation of the
patient at bedside, reviewing the patient's pertinent medical records including radiographs, microbiology, laboratory evaluations, and discussion with primary team and critical care nursing.
Data:
CXR 03-23-2024: Stable postoperative changes with interval removal of endotracheal tube
CXR 03-22-2024: Postoperative chest.
Subjective Dataa
Subjective Data
Date of Service:
Date of Service: March 23, 2024
Chief Complaint: Appraisal Coordinator Follow Up
Subjective:
Patient seen this morning. Doing well on room air, breathing comfortably. Mediastinal chest tubes x2 in place. BP 131/71, heart rate 80. He remains on insulin drip at 7 units/hr. he is sitting in chair with spouse at bedside. Using incentive
spirometer but barely able to pull 250 mL. He denies chest pain, headache, shortness of breath, fevers or chills.
Review of Systems
General: Other (Negative unless mentioned above)
Objective Data
Data Reviewed
Vital Signs / I&O / Oxygen:
Vital Signs
Temp Pulse Resp BP Pulse Ox
98.2 F 72 16 131/78 97
03/23/24 16:00 03/23/24 17:00 03/23/24 16:00 03/23/24 17:00 03/23/24 16:00
Intake and Output
03/22/24 03/23/24 03/24/24
06:59 06:59 06:59
Intake Total 949.5 / 961.8 763.1 / 763.1
Output Total 1365 / 1395 915 / 915
Balance -415.5 / -433.2 -151.9 / -151.9
SaO2 [CPAP/PSV] 100
SaO2 [SIMV] 100
SaO2 97
Nasal Cannula flow liters per 2
minute
Physical Exam
General: Respiratory Distress (negative) and Comfortable
HEENT: Normocephalic and Anicteric
Cardiovascular: S1-S2, Rub and Peripheral Edema (negative)
Respiratory: Clear, Wheeze (negative), Crackles (negative), Rhonchi (negative) and Non-Labored Respirations
GI: Soft, Non Distended and Non Tender
Neurology: Awake, Alert and Tremors (negative)
Skin: Warm and Dry
Labs/Micro/Reports
Lab Data
03/23/24 03:16
03/23/24 03:16
Laboratory Results
03/22/24 03/22/24
17:58 20:52
PT 16.2 H
INR 1.32
APTT 26.0
pH 7.37 7.34 L
pCO2 41 40
pO2 177 H 127 H
HCO3 23.7 21.6
O2 Delivery Level
[2024-03-23 10:02] LABS: Glucose - Point of Care 169 mg/dl (70-99)
[2024-03-23 11:32] LABS: Glucose - Point of Care 128 mg/dl (70-99)
[2024-03-23] MEDS: NSS IV (12:07)
--- NOTE | 2024-03-23 12:10 | PTCARENOTE ---
VS obtained, assessment stable. Patient states pain controlled at this time. Lunch ordered.
[2024-03-23] MEDS: MUCINEX 600 MG PO ×2 (12:32→20:26)
[2024-03-23] MEDS: NOVOLOG FLEXPEN 4 UNITS SC ×2 (12:34→17:59)
[2024-03-23 13:59] LABS: Glucose - Point of Care 165 mg/dl (70-99)
[2024-03-23 16:01] LABS: Glucose - Point of Care 125 mg/dl (70-99)
--- NOTE | 2024-03-23 16:10 | PTCARENOTE ---
VS obtained, assessment stable. Patient resting oob in chair, states pain controlled at this time. at bedside for visit. Perusing menu. Insulin gtt continues.
--- NOTE | 2024-03-23 16:27 | CM ---
CM following for DC planning needs.
Met w/ patient at bedside. Patient is POD#1 from CABG and reports that he is feeling well.
Anticipated DC plan is for home w/ CT Transitional Care RN.
CM to follow.
[2024-03-23 17:52] LABS: Glucose - Point of Care 92 mg/dl (70-99)
[2024-03-23 20:24] LABS: Glucose - Point of Care 192 mg/dl (70-99)
[2024-03-23] MEDS: LOPRESSOR 25 MG PO (20:27)
[2024-03-23 21:34] LABS: Glucose - Point of Care 169 mg/dl (70-99)
[2024-03-23 23:51] LABS: Glucose - Point of Care 74 mg/dl (70-99)
[2024-03-24] VITALS (23 sets, daily range): BP systolic 118–160; BP diastolic 74–87; PULSE 72; O2SAT 95–100; BMI 28.2
[2024-03-24 00:53] LABS: Glucose - Point of Care 91 mg/dl (70-99)
[2024-03-24 01:58] LABS: Glucose - Point of Care 88 mg/dl (70-99)
[2024-03-24 02:56] LABS: Glucose - Point of Care 88 mg/dl (70-99)
[2024-03-24] MEDS: FLEXERIL 5 MG PO ×3 (02:57→19:11)
[2024-03-24 04:14] LABS: Glucose - Point of Care 114 mg/dl (70-99)
[2024-03-24 04:30] LABS: Hematocrit 29.4 % (39.0-52.0); Hemoglobin 10.6 g/dL (13.0-18.0); Mean Corp Hgb Conc. 36.1 g/dL (33.0-37.0); Mean Corpuscular Hgb 33.2 pg (27.0-31.0); Mean Corpuscular Volume 92.2 fL (80.0-94.0); Mean Platelet Volume 8.4 fL (7.4-10.4); Platelet Count 212 10^3/uL (130-400); Red Blood Cell Count 3.19 10^6/uL (4.70-6.10); Red Cell Dist. Width 11.9 % (11.5-14.5); White Blood Cell Count 13.4 10^3/uL (4.8-10.8)
[2024-03-24 04:58] LABS: Blood Urea Nitrogen 22 mg/dl (9-20); Calcium 8.8 mg/dl (8.4-10.2); Carbon Dioxide 28 mmol/L (22-30); Chloride 101 mmol/L (98-107); Estimated Creatinine Clearance 110 ml/min; Glucose 101 mg/dl (70-99); Magnesium 2.1 mg/dl (1.6-2.3); Potassium 4.1 mmol/L (3.5-5.1); Sodium 132 mmol/L (135-145); eGFR > 60.00
--- NOTE | 2024-03-24 06:07 | W.PN.CT ---
Addendum entered and electronically signed by AMRIK Chacon 03/24/24 19:02:
CDi inquiry
- atelectasis
- Hyponatermia
Original Note:
Today's Communication / Plan
-
POD #2
- hemodynamically stable
- tele phase
- cont norvasc for radial graft
- voiding
- CT med 80/200 in 12 hrs, pleural CT removed 03/23
- RA
- Toradol given for pericardial rub 03/23
- encourage IS/chest PT
- PT/OT, OOB
- dispo planning
Assessment / Plan
-
s/p coronary artery bypass grafting x 3 (In situ MAYEN to LAD, DARCIE y'd off the MAYEN to OM 1, Ao to radial to RPDA) on 03/22/[address] Mitchell - POD #2
-CAD now s/p cabg 03/22/24
-HTN
-HLD
-NIDDM
-psh s/p tonsillectomy
Discussed patient care with: Care Team
Subjective
Procedure
s/p coronary artery bypass grafting x 3 (In situ MAYEN to LAD, DARCIE y'd off the MAYEN to OM 1, Ao to radial to RPDA) on 03/22/[address] Mitchell
-
Date of Service: March 24, 2024
Objective Data
-
Lab Results
03/23/24 03:16
03/23/24 03:16
PT 16.2 Sec (11.4-14.6) H 03/22/24 17:58
INR 1.32 03/22/24 17:58
APTT 26.0 Sec (23.4-35.0) 03/22/24 17:58
Vital Signs
Vital Signs
Temp Pulse Resp BP Pulse Ox
98.2 F 78 16 150/89 97
03/23/24 16:00 03/23/24 18:00 03/23/24 16:00 03/23/24 18:00 03/23/24 16:00
CT Intake/Output/Weight
03/23/24 03/23/24 03/24/24
06:59 18:59 06:59
Intake Total 887.4 / 961.8 894.1 / 894.1
Output Total 1245 / 1395 935 / 935
Balance -357.6 / -433.2 -40.9 / -40.9
SaO2: 97
Physical Exam
-
General: Awake, Oriented and AOx3
Cardiovascular: Regular rate & rhythm
Respiratory: Clear and Equal
Sternum: Stable
Incision: Clean, Dry and Intact
Extremities: Edema +1
Data Reviewed
-
Lab Results: Results Reviewed
Medications: Active Meds Reviewed
Chest X-Ray: Image Reviewed
Vital Signs / Labs
-
Vital Signs and Labs:
Temp Pulse Resp BP Pulse Ox
98.4 F 62 18 128/74 97
03/24/24 04:00 03/24/24 04:00 03/24/24 04:00 03/23/24 22:00 03/23/24 19:48
03/24/24 04:09
03/24/24 04:09
03/21/24 03/23/24 03/23/24
08:18 06:58 08:26
WBC
RBC
Hgb
Hct
MCH
Sodium
BUN
Glucose
POC Glucose 153 H 103 H
Crossmatch IS Only See Detail
03/23/24 03/23/24 03/23/24
10:00 11:30 13:58
WBC
RBC
Hgb
Hct
MCH
Sodium
BUN
Glucose
POC Glucose 169 H 128 H 165 H
Crossmatch IS Only
03/23/24 03/23/24 03/23/24
16:00 20:23 21:33
WBC
RBC
Hgb
Hct
MCH
Sodium
BUN
Glucose
POC Glucose 125 H 192 H 169 H
Crossmatch IS Only
03/24/24 03/24/24
04:09 04:13
WBC 13.4 H
RBC 3.19 L
Hgb 10.6 L
Hct 29.4 L
MCH 33.2 H
Sodium 132 L
BUN 22 H
Glucose 101 H
POC Glucose 114 H
Crossmatch IS Only
[2024-03-24 06:46] LABS: Glucose - Point of Care 104 mg/dl (70-99)
[2024-03-24] MEDS: TYLENOL 1000 MG PO ×2 (08:13→21:19)
[2024-03-24] MEDS: LIPITOR 40 MG PO (08:14)
[2024-03-24] MEDS: LOPRESSOR 25 MG PO ×2 (08:14→19:10)
[2024-03-24] MEDS: NEURONTIN 100 MG PO ×3 (08:14→21:19)
[2024-03-24] MEDS: MUCINEX 600 MG PO ×2 (08:14→19:11)
[2024-03-24] MEDS: NORVASC 5 MG PO (08:14)
[2024-03-24] MEDS: PROTONIX 40 MG PO (08:14)
[2024-03-24] MEDS: PACERONE 200 MG PO ×3 (08:14→21:19)
[2024-03-24] MEDS: SENOKOT-S 1 TABLET PO ×2 (08:14→19:10)
[2024-03-24] MEDS: ROXICODONE 5 MG PO ×3 (08:14→19:10)
[2024-03-24] MEDS: MAGNESIUM OXIDE 500 MG PO ×2 (08:14→19:10)
[2024-03-24] MEDS: LOW STRENGTH ASPIRIN 81 MG PO (08:14)
[2024-03-24] MEDS: PLAVIX 75 MG PO (08:15)
[2024-03-24] MEDS: BACTROBAN 2% OINTMENT 1 APPLIC NASAL ×2 (08:15→19:11)
[2024-03-24] MEDS: LIDOCAINE 4% PATCH 1 PATCH TOPICAL (08:15)
[2024-03-24] MEDS: LASIX 20 MG PO (08:15)
[2024-03-24] MEDS: NOVOLOG FLEXPEN 4 UNITS SC ×3 (08:20→18:13)
[2024-03-24 08:22] LABS: Glucose - Point of Care 119 mg/dl (70-99)
--- NOTE | 2024-03-24 08:50 | PTCARENOTE ---
Assumed care of patient at 0700. Pt is awake, alert, and oriented. Pt with complaints of pain, PRN Roxicodone administered. Pt remains SR with HR 60's. BP 138/78 MAP 95. V wire pulled at bedside by CT RADHA. Pt currently in bed on bedrest x 1 hr. Pulse
oximetry 96% on room air. Mediastinal chest tubes x2 in place, no sign of air leak or crepitus, drainage red in color. Pt tolerating PO diet. Voiding without difficulty. Midsternal incision JAIME, well approximated with surgical adhesive. Left arm
incision intact. Right IJ cordis in place with KVO. Remains on insulin gtt per glycemic protocol.
--- NOTE | 2024-03-24 09:13 | W.PN.INTV ---
Today's Communication / Plan
Recommendations
Up OOB as tolerated
Maintain SpO2 >90-94%
Encourage IS use 10x/hr for at least 4 hrs a day
Cardiac rehab consult
Patient now CVICU�telemetry status. Agricultural Research Engineer/Pulmonary service will now sign off. Please reconsult if there are any additional questions/concerns, or if patient's respiratory status deteriorates.
Assessment
-
Assessment: 59-year-old male with a past medical history of CAD, hypertension, DM type II and hyperlipidemia presents for elective CABG. Patient known to cardiothoracic surgery here at with last office visit on 03/17/[address] Mitchell. Patient
has multivessel CAD and was recently admitted to [facility] due to chest discomfort on exertion. Left heart cath performed on 03/14/2024 showed multivessel CAD involving the proximal LAD. Patient is very active at baseline. Surgical
intervention for CABG was discussed and patient agreed to intervention. Today he underwent CABG x3 with no immediate complications, and was transferred to CVICU postoperatively. Agricultural Research Engineer service is now consulted for additional
management/recommendations.
Impression:
#Multivessel CAD involving proximal LAD s/p CABG x3 (POD#2)
#Former tobacco use disorder
#Hyponatremia
#Anemia
#DM type II
Plan:
Maintain SpO2 >90-94%
Encourage incentive spirometry
Increase activity as tolerated
Aspiration precautions
Pressors have been weaned
All chest tubes have now been removed
Follow hemoglobin
Continue to follow platelet count and coags
Transfuse blood product as needed to keep Hb>8 g/dL
Patient is being weaned off insulin drip as he requires to be on it for 48 hours - follow blood sugar while on insulin gtt
q1hr POCT glucose until off insulin gtt
Goal BG 140-180mg/dL
Early nutrition
Early mobilization
DVT prophylaxis
Patient is being weaned off of insulin infusion later this evening. He has been downgraded to CVICU�telemetry status. Agricultural Research Engineer/Pulmonary service will now sign off. Thank you for allowing us to be involved in the care of this patient. Please
reconsult if there are any additional questions/concerns, or if patient's respiratory status deteriorates.
I personally reviewed the patient's pertinent medical records including radiographs, microbiology, laboratory evaluations, and discussion with primary team, and critical care nursing.
Total time spent today was 55 minutes for this encounter. Time includes reviewing laboratory test/imaging results, reviewing pertinent medical records, obtaining and reviewing medical history, performing an appropriate exam, ordering medications,
tests and procedures. Time also includes documentation of this encounter, coordinating patient care and communicating with other healthcare professionals. Total time does not include separately billed tests performed on this date of service.
Data:
CXR 03-24-2024: No pneumothorax status post discontinuation of bilateral chest tubes. Stable mild atelectasis at the left lung base.
CXR 03-23-2024: Stable postoperative changes with interval removal of endotracheal tube
CXR 03-22-2024: Postoperative chest.
Subjective Dataa
Subjective Data
Date of Service:
Date of Service: March 24, 2024
Chief Complaint: Agricultural Research Engineer Follow Up
Subjective:
Patient seen this morning. Laying in bed, at bedside. No acute events reported overnight. Mediastinal chest tubes removed today. He is on room air breathing comfortably. Still barely able to pull anything from incentive spirometer due to
both weakness and chest discomfort during inspiration. Patient denies headache, abdominal pain, fevers or chills.
Review of Systems
General: Other (Negative unless mentioned above)
Objective Data
Data Reviewed
Vital Signs / I&O / Oxygen:
Vital Signs
Temp Pulse Resp BP Pulse Ox
97.7 F 62 18 128/74 96
03/24/24 08:00 03/24/24 04:00 03/24/24 08:00 03/23/24 22:00 03/24/24 08:00
Intake and Output
03/23/24 03/24/2424
06:59 06:59 06:59
Intake Total 949.5 / 961.8 901.3 / 912.6 23.6 / 23.6
Output Total 1365 / 1395 1325 / 1375 120 / 120
Balance -415.5 / -433.2 -423.7 / -462.4 -96.4 / -96.4
SaO2 [CPAP/PSV] 100
SaO2 [SIMV] 100
SaO2 96
Nasal Cannula flow liters per 2
minute
Physical Exam
General: Respiratory Distress (negative) and Comfortable
HEENT: Normocephalic and Anicteric
Cardiovascular: S1-S2, Rub and Peripheral Edema (negative)
Respiratory: Clear, Wheeze (negative), Crackles (negative), Rhonchi (negative) and Non-Labored Respirations
GI: Soft, Non Distended and Non Tender
Neurology: Awake, Alert and Tremors (negative)
Skin: Warm and Dry
Labs/Micro/Reports
Lab Data
03/24/24 04:09
03/24/24 04:09
--- NOTE | 2024-03-24 10:21 | W.PN.CD ---
Today's Communication / Plan
-
continue current meds
trend tele
Impression / Plan
-
59 yo male with CAD, HTN, hyperlipidemia, DM admitted following elective CABG.
# CAD s/p coronary artery bypass grafting x 3 (In situ MAYEN to LAD, DARCIE y'd off the MAYEN to OM 1, Ao to radial to RPDA) on 03/22/[address] Mitchell
-post op TRISTON: EF 65-70%
-cont ASA, Plavix, metoprolol, statin
# Abnormal EKG
-new LBBB post-op: now resolved
-also diffuse ST elevation c/w pericarditis has improves/resolved
-if sxs persist after chest tube removal, can add colchicine
# HTN
-trend BP as recovers from OR
-cont metoprolol, amlodipine
-add back home enalapril as BP allows
Physical Exam
Vital Signs/Labs
Vital Signs
Temp Pulse Resp BP Pulse Ox
97.7 F 66 18 124/77 96
03/24/24 08:00 03/24/24 09:45 03/24/24 08:00 03/24/24 09:30 03/24/24 08:48
03/23/24 03/24/24 03/25/24
06:59 06:59 06:59
Actual Weight 94.2 kg 94.3 kg
03/24/24 04:09
03/24/24 04:09
PT 16.2 Sec (11.4-14.6) H 03/22/24 17:58
INR 1.32 03/22/24 17:58
APTT 26.0 Sec (23.4-35.0) 03/22/24 17:58
Magnesium 2.1 mg/dl (1.6-2.3) 03/24/24 04:09
Physical Exam
Constitutional: No acute distress and Comfortable
EENT: Moist mucous membranes
Cardiovascular: Rhythm & rate is regular, Pedal edema is absent, JVD pressure is normal and Systolic murmur absent
Respiratory: Respiratory effort normal, Lungs clear to auscul. and Wheeze Absent
GI: Soft and Distention absent
Neuro/Psych: AO x 3
Data Reviewed
-
Date of Service: March 24, 2024
EKG: Other (Tele: NSR 70s)
Labs: Labs Reviewed by me
[2024-03-24 10:56] LABS: Glucose - Point of Care 187 mg/dl (70-99)
--- NOTE | 2024-03-24 11:42 | PTCARENOTE ---
Mediastinal chest tubes d/c'd. Pt OOB ambulating with cardiac rehab at this time. Pt remains SR HR 70's. BP 139/75 MAP 93. Pulse oximetry 95% on room air. Pt with continued complaints of sternal pain, PRN Flexeril administered for relief.
[2024-03-24 12:00] LABS: Glucose - Point of Care 195 mg/dl (70-99)
[2024-03-24 13:21] LABS: Glucose - Point of Care 164 mg/dl (70-99)
[2024-03-24] MEDS: TYLENOL PO (14:53)
--- NOTE | 2024-03-24 15:11 | CM ---
CM following for DC planning needs.
Met w/ patient, spouse at bedside.
Pt. reports that he is feeling okay.
Reviewed DC plan; anticipate home w/ CT Transitional Care RN.
CM to cont. to follow.
[2024-03-24] MEDS: DILAUDID 0.25 MG IV (15:40)
[2024-03-24] MEDS: NSS 500 IV (15:42)
--- NOTE | 2024-03-24 16:09 | PN.CDI ---
CDI
- -
CDI:
Physician Documentation Request
Admit Date: 03/22/24 08:40
Dear Doctor Paula,
Patient is s/p coronary artery bypass grafting x 3
Recent sodium resulted as follows:
Laboratory Tests
03/23/24 03/24/24
03:16 04:09
Sodium 138 132 L
Could you please provide a diagnosis that supports the above abnormalities and additional evaluation/ monitoring:
Hyponatremia
Abnormal lab value clinically insignificant
Other
Use of terms such as suspected, likely, concern for, or probable (associated with a specific diagnosis that is being evaluated, monitored, or treated as if it exists) are acceptable and can be coded in the inpatient setting, when documented at the
time of discharge.
Thank you,
Estephania Ash RN, BSN
CDI Specialist
tiger text
Please use your independent medical judgment in providing your response.
--- NOTE | 2024-03-24 16:20 | PN.CDI ---
CDI
- -
CDI:
Physician Documentation Request
Admit Date: 03/22/24 08:40
Dear Doctor Paula
The diagnosis of atelectasis was included in the signed chest x ray from 03/24
03/24 CT progress note states 'encourage IS/chest PT'
Please indicate in your progress notes if you are in agreement that the above diagnosis is valid for this patient:
____ - atelectasis is a valid diagnosis (Please include it in your progress notes)
____ - atelectasis is not a valid diagnosis for this patient
____ - Other
Use of terms such as suspected, likely, concern for, or probable are acceptable for a diagnosis that is being evaluated, monitored or treated as if it exists and can be coded in the inpatient setting, when documented at the time of discharge.
Thank you,
Estephania Ash RN, BSN
CDI Specialist
tiger text
Please use your independent medical judgment in providing your response.
--- NOTE | 2024-03-24 16:45 | PTCARENOTE ---
Pt ambulated in saucedo with RN assistance, pt fatigued easily. Pt currently OOB in chair. Remains on insulin gtt at this time. Pt remains SR with HR 70's-80's. BP 143/75 MAP 92.
[2024-03-24 17:29] LABS: Glucose - Point of Care 192 mg/dl (70-99)
[2024-03-24 17:30] LABS: Glucose - Point of Care 146 mg/dl (70-99)
[2024-03-24 17:30] LABS: Glucose - Point of Care 173 mg/dl (70-99)
[2024-03-24 18:11] LABS: Glucose - Point of Care 129 mg/dl (70-99)
[2024-03-24] MEDS: DILAUDID 0.5 MG IV (21:19)
--- NOTE | 2024-03-24 23:45 | PTCARENOTE ---
Pt comfortable at this time,physical assessment preformed with ease,pt encouraged to deep breath,O2 sats on room air 88%,1Lnc applied,brought O2 sat up to 94%,pt receptive.Denies need for pain med,self positioning.SR monitoring and evaluation advisor.Afebrile.Close
observation ongoing throughout the night.
[2024-03-25] VITALS (7 sets, daily range): BP systolic 122–153; BP diastolic 75–89; PULSE 72; O2SAT 96–98; BMI 28.2
--- NOTE | 2024-03-25 03:19 | PTCARENOTE ---
Pt oob to BR, slight MELENDEZ,recovers quickly when back to bed.Pt denied need for pain med.,O2 on room air checked at this time,94%,O2 off at this time.
--- NOTE | 2024-03-25 03:26 | W.PN.CT ---
Today's Communication / Plan
-
-pod #3
-doing well, no issues overnight, ambulates
-intermittent LBBB noted with ambulation (asymptomatic) - monitor
-current meds (ASA, Plavix, Amio, Lopressor 25 bid, Lipitor, Norvasc, Mucinex, Neurontin, Lidocaine patch)
-encourage IS, OOB
-possible d/c soon
Assessment / Plan
-
s/p coronary artery bypass grafting x 3 (In situ MAYEN to LAD, DARCIE y'd off the MAYEN to OM 1, Ao to radial to RPDA) on 03/22/[address] Mitchell - POD #3
-CAD now s/p cabg 03/22/24
-HTN
-HLD
-NIDDM
-psh s/p tonsillectomy
-Acute postop blood loss anemia
-Acute postop atelectasis
-Acute postop hypovolemia with subsequent hypervolemia
-Acute postop hyponatremia
-Acute postop transient LBBB with walking (asymptomatic)
Discussed patient care with: Nursing and Care Team
Subjective
Procedure
s/p coronary artery bypass grafting x 3 (In situ MAYEN to LAD, DARCIE y'd off the MAYEN to OM 1, Ao to radial to RPDA) on 03/22/[address] Mitchell
-
Date of Service: March 25, 2024
Objective Data
-
PT 16.2 Sec (11.4-14.6) H 03/22/24 17:58
INR 1.32 03/22/24 17:58
APTT 26.0 Sec (23.4-35.0) 03/22/24 17:58
Vital Signs
Vital Signs
Temp Pulse Resp BP Pulse Ox
98.4 F 70 18 149/81 94
03/24/24 23:25 03/24/24 23:30 03/24/24 20:00 03/24/24 23:09 03/24/24 23:38
CT Intake/Output/Weight
03/24/24 03/24/24 03/25/24
06:59 18:59 06:59
Intake Total 7.2 / 912.6 172.2 / 172.2
Output Total 390 / 1375 135 / 135
Balance -382.8 / -462.4 37.2 / 37.2
SaO2: 94
Physical Exam
-
General: Awake, Oriented and AOx3
Cardiovascular: Regular rate & rhythm, no murmur, no rub
Respiratory: Clear and Equal, decreased sounds b/l
Sternum: Stable
Incision: Clean, Dry and Intact
Extremities: no edema b/l, 2+ DPs b/l
Data Reviewed
-
Lab Results: Results Reviewed
Medications: Active Meds Reviewed
Chest X-Ray: Report Reviewed and Image Reviewed
ECG: Report Reviewed and Image Reviewed
[2024-03-25 04:58] LABS: Hematocrit 30.9 % (39.0-52.0); Hemoglobin 10.9 g/dL (13.0-18.0); Mean Corp Hgb Conc. 35.3 g/dL (33.0-37.0); Mean Corpuscular Hgb 33.3 pg (27.0-31.0); Mean Corpuscular Volume 94.5 fL (80.0-94.0); Mean Platelet Volume 8.7 fL (7.4-10.4); Platelet Count 235 10^3/uL (130-400); Red Blood Cell Count 3.27 10^6/uL (4.70-6.10); Red Cell Dist. Width 11.5 % (11.5-14.5); White Blood Cell Count 11.7 10^3/uL (4.8-10.8)
[2024-03-25 05:27] LABS: Blood Urea Nitrogen 20 mg/dl (9-20); Calcium 8.7 mg/dl (8.4-10.2); Carbon Dioxide 27 mmol/L (22-30); Chloride 101 mmol/L (98-107); Estimated Creatinine Clearance 110 ml/min; Glucose 124 mg/dl (70-99); Magnesium 2.1 mg/dl (1.6-2.3); Potassium 4.1 mmol/L (3.5-5.1); Sodium 132 mmol/L (135-145); eGFR > 60.00
[2024-03-25] MEDS: TYLENOL 1000 MG PO ×2 (05:54→13:00)
--- NOTE | 2024-03-25 06:31 | PTCARENOTE ---
Pt oob to BR no assist,pt tolerated activity well.Denied dizziness,pain is minimal to chest/sternal area,pt supporting sternal incision.SR HR 70s.
[2024-03-25 07:45] LABS: Glucose - Point of Care 164 mg/dl (70-99)
[2024-03-25] MEDS: NOVOLOG FLEXPEN-MODERATE RESISTANCE 1 UNITS SC ×2 (08:18→12:20)
[2024-03-25] MEDS: BACTROBAN 2% OINTMENT 1 APPLIC NASAL (08:18)
[2024-03-25] MEDS: SENOKOT-S 1 TABLET PO (08:19)
[2024-03-25] MEDS: LIDOCAINE 4% PATCH 1 PATCH TOPICAL (08:19)
[2024-03-25] MEDS: PROTONIX 40 MG PO (08:19)
[2024-03-25] MEDS: NORVASC 5 MG PO (08:19)
[2024-03-25] MEDS: MAGNESIUM OXIDE 500 MG PO (08:19)
[2024-03-25] MEDS: NEURONTIN 100 MG PO (08:19)
[2024-03-25] MEDS: LOW STRENGTH ASPIRIN 81 MG PO (08:19)
[2024-03-25] MEDS: PLAVIX 75 MG PO (08:19)
[2024-03-25] MEDS: MUCINEX 600 MG PO (08:20)
[2024-03-25] MEDS: LOPRESSOR 25 MG PO (08:20)
[2024-03-25] MEDS: PACERONE 200 MG PO (08:20)
[2024-03-25] MEDS: LIPITOR 40 MG PO (08:20)
[2024-03-25] MEDS: FLEXERIL 5 MG PO (09:10)
--- NOTE | 2024-03-25 09:11 | W.[place]-PDMP ---
[place]PD[place]
-
Checked the [place]- Pres[place] Drug Monitoring [place] website, no red flags identified; safe to proceed with prescription.
--- NOTE | 2024-03-25 09:11 | W.DCSUMMARY ---
Discharge Summary
Discharge Data
Date of Admission: 03/22/24
Date of Discharge: 03/25/24
-
Pending Results: No
Hospital Course
Primary care physician:
Sebastian Bridges
Outpatient drum maker:
Allen Fernandez
Inpatient consultants:
CBC, Gas Leak Inspector
Procedures:
1. Total arterial coronary artery bypass grafting x 3 (In situ MAYEN to LAD, DARCIE y'd off the MAYEN to OM 1, Ao to radial to RPDA)
Primary Diagnosis:
1. Multivessel Coronary Artery Disease with proximal LAD disease and a chronically totally occluded RPDA
Secondary Diagnoses:
1. Diabetes mellitus
2. Hypertension
3. Hyperlipidemia
4. Hyponatremia
HPI: 58-year-old male with a history of multivessel coronary disease and was found to have an NSTEMI underwent left heart cath and found disease involving the proximal LAD, OM1, and a DESK MONITOR lesion to the RPDA. He has significant family history for
coronary artery disease. He is very active at baseline has ECOG score of 0. Due to his disease pattern and young age, he was offered multi arterial revascularization. He may class I indication for surgery.
Hospital course: Patient was electively admitted on 03/22 for a coronary artery bypass surgery with Dr. Mitchell. Postoperatively he was returned to the CVICU on Cardizem, Levophed, Precedex, and insulin infusions. He was then started on Norvasc and
diltiazem was discontinued. Precedex was weaned off and patient was extubated that night. On 03/23 postoperative day #1 pleural chest tube and Marino catheter was discontinued. Patient was complaining of severe pain and had a pericardial rub on
exam and was started on Toradol. He had a transient left bundle branch block on EKG with activity that would resolve with rest. On 03/24 postoperative day #2 epicardial wires were pulled along with mediastinal chest tubes. He was given 20 mg of
p.o. Lasix. His beta-blockers were uptitrated although transient left bundle branch block was still present with activity. He was asymptomatic with this left bundle branch blocks and after discussion with cardiology it was decided that it was
benign. On 03/25, postoperative day #3 patient got a two-view chest x-ray. He was diuresed again and was deemed stable for discharge.
Patient was educated that he should remain on Norvasc for at least 1 year after surgery due to the radial artery conduit. So he shall continue Plavix for 1 month after discharge.
Home medication changes:
See below
Discharge Plan
-
Patient Disposition: Home (Routine Discharge)
Discharge Diagnosis/Procedures: cad/cabg
Condition: Fair
Diet: Low Cholesterol, Low Sodium and Diabetic, Carb Controlled
Activity: No strenuous activity
Driving Restrictions: Not until seen by your Dr
Bathing Restrictions: OK to Shower
Other Services: Cardiac Rehab
Specialty Instructions: Weigh Daily- Call MD for wt gain/loss 3 lbs overnight/5 lbs in 1 week
Activity Restrictions/Additional Instructions:
Please call to make appointments for Phase II Cardiac Rehab:
[facility]
ACTIVITY:
-No strenuous activity: no heavy lifting, pushing, pulling anything over 15 pounds for one month
-continue to use stairs as tolerated
DRIVING RESTRICTIONS:
-No driving for one month or until approved by your surgeon
WOUND CARE:
-Shower daily. Use soap & water.
-No lotions, creams or powders on incision area.
DIET:
-continue a low fat/low cholesterol diet.
-IF you are diabetic, continue carb controlled diet.
CARDIAC REHAB:
-Please make appointment to start in 5-6 weeks with your local hospital program. (See Cardiac Rehabilitation Discharge Booklet).
SPECIALTY INSTRUCTIONS:
-Weigh yourself daily. Call your physician for any weight gain/loss of 3 lbs overnight or 5 lbs in one week.
-REPORT any clicking noise or uneven appearance of your sternum to your surgeon immediately.
-If you smoke, you are instructed to quit. The [facility] smoking hotline phone number is [phone]
[address] Ted [email or web address] [email or web address]
[email or web address]
Referrals:
CT Transitional Care Nurse [Outside] - in one to two days
(
The Cardiothoracic Transitional Care Nurse will call you to set up a visit in 1-2 days.)
Sebastian Bridges DO [Family Provider] - in four to six weeks (Please schedule an appointment in four to six weeks. )
Benton Mitchell MD [Active] - 04/27/24 2:15 pm
Allen Fernandez MD [Active] - 05/09/24 2:10 pm
Additional Discharge Medication Instructions: Discontinue enalapril, isosorbide mononitrate, metoprolol tartrate 25mg daily.
Hold ibuprofen for at least 1 week after surgery
CONTINUE PLAVIX 75MG FOR 30 DAYS AFTER DISCHARGE
Continue Amlodipine for at least 1 year after discharge due to your radial harvest.
Prescriptions:
New
acetaminophen [Tylenol Extra Strength] 500 mg Tablet
1,000 mg PO Q8H PRNQty: 0 0RF
pantoprazole 40 mg Tablet,Delayed Release (Dr/Ec)
40 mg PO DAILY Qty: 90 0RF
oxycodone 5 mg Tablet
5 mg PO Q8H PRN (Reason: severe pain) Qty: 10 0RF
metoprolol succinate [Toprol XL] 50 mg tablet extended release 24 hr
50 mg PO HS Qty: 60 0RF
clopidogrel [Plavix] 75 mg tablet
75 mg PO DAILY Qty: 30 0RF
Continued
multivitamin Tablet
1 tab PO DAILY
atorvastatin 40 mg Tablet
40 mg PO DAILY
metformin 500 mg Tablet
500 mg PO BID
amlodipine 5 mg Tablet
5 mg PO BID
aspirin 81 mg Tablet,Delayed Release (Dr/Ec)
81 mg PO DAILY
loratadine 10 mg Tablet
10 mg PO DAILY
Discontinued
enalapril maleate 5 mg Tablet
15 mg PO BID
isosorbide mononitrate 30 mg Tablet Extended Release 24 Hr
30 mg PO DAILY
ibuprofen 200 mg Tablet
800 mg PO Q8H PRN (Reason: pain)
metoprolol tartrate 25 mg Tablet
25 mg PO DAILY
Care Plan Goals
Care Plan Goals:
Problem: Readiness for enhanced knowledge related to diagnosis and treatment plan
Goal: Understand your diagnosis and treatment plan needs, including medications if applicable.
Instructions: Know your diagnosis, underlying causes and treatment plan options, including medications if applicable. Consult with your health care team to learn about your diagnosis and treatment plan, including medications if applicable.
Discharge Date and Time
Print Language: TAJIK
--- NOTE | 2024-03-25 09:18 | PTCARENOTE ---
Patient received from supervisor coil winding resting oob in chair, AAO X 3, awaiting breakfast. NSR via cm, SaO2 @ 95% on RA. RIJ Cordis w/kvo infusing. All procedural sites stable. Dr. Mitchell and team to bedside, patient updated to plan of care for the day
including possible d/c home, in agreement. See work list for full assessment and interventions performed.
--- NOTE | 2024-03-25 09:50 | W.PN.CD ---
Today's Communication / Plan
-
Agree with care plan
Impression / Plan
-
59 yo male with CAD, HTN, hyperlipidemia, DM admitted following elective CABG.
CAD
- s/p CABG x 3 (MAYEN=>LAD; DARCIE from MAYEN=>OM 1; radial => rPDA) on 03/22/[address] Mitchell
- post op TRISTON: EF 65-70%
- cont ASA, Plavix, metoprolol, statin
Rate related LBBB persists
- Reviewed signs and sx of AV block, low risk for now
- I do not suggest outpt tele at discharge
HTN
- On med rx
Subjective:
Doing well. Eager for home.
Physical Exam
Vital Signs/Labs
Vital Signs
Temp Pulse Resp BP Pulse Ox
98 F 93 16 153/75 95
03/25/24 08:15 03/25/24 08:45 03/25/24 08:15 03/25/24 08:20 03/25/24 08:54
03/24/24 03/25/24 03/26/24
06:59 06:59 06:59
Actual Weight 94.3 kg 94.2 kg
03/25/24 04:12
03/25/24 04:12
PT 16.2 Sec (11.4-14.6) H 03/22/24 17:58
INR 1.32 03/22/24 17:58
APTT 26.0 Sec (23.4-35.0) 03/22/24 17:58
Magnesium 2.1 mg/dl (1.6-2.3) 03/25/24 04:12
Physical Exam
Constitutional: No acute distress
Cardiovascular: Rhythm & rate is regular, Pedal edema is absent and Rub absent
Respiratory: Respiratory effort normal and Lungs clear to auscul. (decrease at left base)
GI: Soft and Distention absent
Data Reviewed
-
Date of Service: March 25, 2024
[2024-03-25] MEDS: KCL 20 MEQ PO (09:51)
[2024-03-25] MEDS: LASIX 40 MG IV (09:51)
[2024-03-25 11:47] LABS: Glucose - Point of Care 168 mg/dl (70-99)
--- NOTE | 2024-03-25 12:00 | PTCARENOTE ---
VS obtained, stable. at bedside for visit. For d/c home this afternoon.
[2024-03-25] MEDS: NSS IV (12:08)
--- NOTE | 2024-03-25 14:56 | PTCARENOTE ---
Patient set up to shower, completed independently. Discharge instructions thoroughly reviewed w/patient and spouse, all questions answered. PIV removed. Patient and all belongings transported to waiting vehicle for d/c home.
== END 2024-03-25 14:55 | disposition home or self-care (01) | DRG 236 ==
LOC: CVICU 08:40
PROVIDERS: Anesthesiology; Nurse Practitioner; ADMITTING PHYSICIAN Thoracic Surgery (Cardiothoracic Vascular Surgery); CONSULT PHYSICIAN Internal Medicine Critical Care Medicine; FAMILY PHYSICIAN Family Medicine
PROC: 5A1221Z Performance of Cardiac Output, Continuous (ICD-10-PCS; 2024-03-22)
PROC: 02100Z9 Bypass Coronary Artery, One Artery from Left Internal Mammary, Open Approach (ICD-10-PCS; 2024-03-22)
PROC: 02100Z8 Bypass Coronary Artery, One Artery from Right Internal Mammary, Open Approach (ICD-10-PCS; 2024-03-22)
PROC: 03BB4ZZ Excision of Right Radial Artery, Percutaneous Endoscopic Approach (ICD-10-PCS; 2024-03-22)
PROC: B24BZZ4 Ultrasonography of Heart with Aorta, Transesophageal (ICD-10-PCS; 2024-03-22)
PROC: 02100AW Bypass Coronary Artery, One Artery from Aorta with Autologous Arterial Tissue, Open Approach (ICD-10-PCS; 2024-03-22)
DX: I21.4 Non-ST elevation (NSTEMI) myocardial infarction (principal); E87.1 Hypo-osmolality and hyponatremia; I31.9 Disease of pericardium, unspecified; J98.11 Atelectasis; D62 Acute posthemorrhagic anemia; I25.10 Atherosclerotic heart disease of native coronary artery without angina pectoris; E11.9 Type 2 diabetes mellitus without complications; E78.5 Hyperlipidemia, unspecified; I10 Essential (primary) hypertension; I45.10 Unspecified right bundle-branch block; I44.7 Left bundle-branch block, unspecified; E86.1 Hypovolemia; Z79.82 Long term (current) use of aspirin; Z79.84 Long term (current) use of oral hypoglycemic drugs; Z79.899 Other long term (current) drug therapy; Z82.49 Family history of ischemic heart disease and other diseases of the circulatory system; Z87.891 Personal history of nicotine dependence
CPT/HCPCS: 88304; 36415; 71045; 71046; 80048; 80053; 81003; 82248; 82330; 82565; 82805; 82947; 82962; 83036; 83735; 84132; 84302; 84520; 85014; 85018; 85025; 85027; 85049; 85610; 85730; 86850; 86900; 86901; 86920; 87070; 88341; 88342; 93005; 93312; 93320; 93325; 94002; P9045